=== PATIENT | female | born 1955 | race Caucasian/White ===

== ENCOUNTER → 2017-06-13 | Outpatient (CLI) | payer OTHER ==
[~2017-06-13] VITALS: Ht 165.1 cm; Wt 86.2 kg
[~2017-06-13] MED LIST: ADDERALL10 MG PO; ADDERALL30 MG PO; ADVIL200 M1 PO; ALPRAZOLAM0.5 MG PO; ARIMIDEX1 MG PO; ASPIR 8181 M1 PO; ASPIRIN81 M2 PO; ATIVAN1 MG PO; ATORVASTATIN CA20 MG PO; BENADRYL25 MG PO; CALAN SR,COVER120 MG PO; CALCIUM 600 +1 EA13 PO; COMPAZINE10 MG PO; COUMADIN1 MG PO; DECADRON4 MG PO; DIETHYLPROPION75 MG PO; DURAGESIC75 MCG TD; ENDOCET 5-3251 EACH PO; ESTRADIOL2 MG PO; EXCEDRIN MIGRA1 EAC3 PO; FENTANYL1 EAC2 TD; FIBER LAXATIV0.52 GM PO; FUROSEMIDE40 MG PO; GLUCOSAMINE CH1 EAC7 PO; GLUCOSAMINE-CH1 EA48 PO; GLUCOSAMINE1000 MG PO; HALDOL0.5 MG PO; HYDROCODON-ACE1 EAC5 PO; IMITREX100 MG PO; IMODIUM A-D2 M2 PO; INDERAL LA80 MG PO; K-DUR10 MEQ PO; LASIX40 MG PO; LIDODERM 5% P1 PATCH TD; LIPITOR20 MG PO; LO-DOSE ASPIRIN81 M1 PO; LOMOTIL TABLET1 EACH PO; MELOXICAM7.5 MG PO; MOBIC7.5 MG PO; MULTIVITAMIN1 EAC2 PO; MYRBETRIQ50 MG PO; NAPROSYN500 MG PO; NORCO 10/3251 TABLET PO; NORCO 5/3251 TABLET PO; NORCO 7.5/321 TABLET PO; NUVIGIL150 MG PO; NUVIGIL250 MG PO; OMEPRAZOLE40 M1 PO; ONE DAILY FOR1 EAC1 PO; ONE-A-DAY WOME1 EAC1 PO; PROPRANOLOL HCL80 MG PO; SERTRALINE HCL100 MG PO; SUMATRIPTAN SU100 MG PO; TOPAMAX100 MG PO; TOPIRAMATE100 MG PO; TRAMADOL HCL50 MG PO; TRAZODONE HCL50 MG PO; TROSPIUM CHLORI60 MG PO; VERAPAMIL HCL120 M2 PO; VERAPAMIL HCL120 MG PO; VERAPAMIL HCL240 MG PO; VITAMIN B-122500 MCG SL; XANAX0.5 MG PO; ZOLOFT100 MG PO; ZUPLENZ8 MG PO; ZYRTEC10 M2 PO
== END | disposition home or self-care (01) ==
LOC: AMB 13:30
PROC: 0DJ08ZZ Inspection of Upper Intestinal Tract, Via Natural or Artificial Opening Endoscopic (ICD-10-PCS; principal; 2017-06-13)
DX: K21.9 Gastro-esophageal reflux disease without esophagitis (principal); Z98.84 Bariatric surgery status
CPT/HCPCS: 93005